=== PATIENT | male | born 1970 | race Caucasian/White ===

== ENCOUNTER 2022-10-16 17:59 | Emergency (ER) | payer BC, SELFPAY ==
[2022-10-16 17:59] VITALS: BP 151/92; PULSE 88; RESP 18; TEMP 36.8; O2SAT 94
--- NOTE | 2022-10-16 18:25 | ED.URI ---
HPI - URI/Sore Throat General Chief Complaint: Upper Respiratory Infection Stated Complaint: cough Source: patient Mode of arrival: ambulatory Limitations: no limitations History of Present Illness HPI Narrative: 52-year-old male with a history of CAD status post CABG 6 years ago, dyslipidemia, hypertension presents to the ER with a 3 day history of -- 1 episode of low-grade fever -- nonproductive cough no chest pain or shortness of breath patient's sister was diagnosed with COVID and he was exposed to her 6 days ago. MD elicited complaint: fever and cough Onset (ago): day(s) ( Three days) Consistency: intermittent Severity: mild Description of mucous: green Able to tolerate fluids by mouth: Yes Exacerbating factors: nothing Relieving factors: nothing Context: sick contacts Associated symptoms: fever Treatments prior to arrival: none Related Data Allergies Allergy/AdvReac Type Severity Reaction Status Date / Time No Known Allergies Allergy Verified 10/16/22 18:25 Review of Systems Review of Systems: All systems reviewed & are unremarkable except as noted in HPI and below Constitutional: Constitutional: Reports as per HPI, Reports no additional constitutional complaints and Reports fever(s) Eyes: Eyes: Reports as per HPI and Reports no additional eye complaints ENT: Reports system reviewed and no additional complaints, except as documented and Reports as per HPI Cardiovascular: Cardiovascular: Reports as per HPI and Reports no additional cardiovascular complaints Respiratory: Respiratory: Reports as per HPI, Reports no additional respiratory complaints and Reports cough Gastrointestinal: Gastrointestinal: Reports as per HPI and Reports no additional gastrointestinal complaints Genitourinary: Genitourinary: Reports no additional male genitourinary complaints and Reports as per HPI Musculoskeletal: Musculoskeletal: Reports no additional musculoskeletal complaints and Reports as per HPI Integumentary/Breasts: Skin/Breast: Reports system reviewed and no additional complaints, except as docu and Reports as per HPI Neurologic: Reports system reviewed and no additional complaints, except as documented and Reports as per HPI Psychiatric: Psychiatric: Reports no additional psychiatric complaints and Reports as per HPI Endocrine: Endocrine: Reports no additional endocrine complaints and Reports as per HPI Hematologic/Lymphatic: Hematologic/Lymphatic: Reports no additional hematologic/lymphatic complaints and Reports as per HPI Allergic/Immunologic: Allergic/Immunologic: Reports no additional allergic/immunologic complaints and Reports as per HPI [facility] Past Medical History Medical History (Updated 10/16/22 @ 19:50 by Walter Gardiner MD) CAD (coronary artery disease) Dyslipidemia Hypertension Surgical History Surgical History (Updated 10/16/22 @ 19:05 by Walter Gardiner MD) Hx of CABG Family History Family History (Updated 10/16/22 @ 19:05 by Walter Gardiner MD) Other Acute myocardial infarction Exam Narrative: afebrile. Oxygenation stable Const: General: no acute distress Nutritional Appearance: well nourished Orientation/consciousness: patient oriented x3 Limitations: no limitations HENMT: Head: normal to inspection Ears: external ears normal Face/Nose/Sinus: Normal external nose present Face and sinus: normal facial exam Mouth: Yes Normal oral and palatal mucosa present Throat: posterior oropharynx normal Eyes: Conjunctivae: conjunctivae normal Pupils: Equal, round and reactive pupils present EOM: EOMs intact bilaterally Direct Ophthalmoscopy: no photophobia Neck: Neck: normal visual inspection, no lymphadenopathy and no meningeal signs Chest: Chest palpation & inspection: normal inspection of the chest and abnormal inspection of the chest Resp: Effort & Inspection: normal respiratory effort Auscultation: clear to auscultation bilaterally Cardio: Rate: regular
[2022-10-16 18:54] LABS: Influenza A QL RT-PCR Negative (Negative); Influenza B QL RT-PCR Negative (Negative); RSV RNA, RT-PCR Negative (Negative); SARS-CoV-2 RNA PCR Negative (Negative)
--- NOTE | 2022-10-16 19:03 | PC.NURSE ---
patient report given to KATHY Mondragon. care assumed by Alanna at this time.
[2022-10-16 19:15] VITALS: BP 140/90; PULSE 78; RESP 20; O2SAT 100
[2022-10-16 19:52] VITALS: BP 132/80; PULSE 80; RESP 20; TEMP 36.6; O2SAT 98
== END 2022-10-16 20:05 | disposition home or self-care (01) ==
PROVIDERS: Emergency Provider Internal Medicine Critical Care Medicine; PCP Family Medicine
DX: J06.9 Acute upper respiratory infection, unspecified (principal); I25.810 Atherosclerosis of coronary artery bypass graft(s) without angina pectoris; E78.5 Hyperlipidemia, unspecified; I10 Essential (primary) hypertension; Z20.822 Contact with and (suspected) exposure to COVID-19
CPT/HCPCS: 87637; 99283

== ENCOUNTER 2023-09-16 12:02 | Emergency (ER) | payer BC, SELFPAY ==
--- NOTE | ~2023-09-16 | XR_ITS ---
EXAMINATION: XR chest 2V DATE: 09/16/2023 12:47 INDICATION: Shortness of breath. TECHNIQUE: Frontal and lateral views of the chest were obtained. COMPARISON: None. FINDINGS: There is no pneumonia, pleural effusion, or pneumothorax. The heart size is normal. Median sternotomy wires and mediastinal surgical clips are seen, likely from prior coronary artery bypass gr afting. IMPRESSION: 1. No acute cardiopulmonary disease. Reviewed, dictated and finalized at location A.
[2023-09-16 12:06] VITALS: BP 131/78; PULSE 65; RESP 20; TEMP 36.2; O2SAT 97
[2023-09-16 12:21] VITALS: BP 131/78; PULSE 65; RESP 20; TEMP 36.2; O2SAT 97
--- NOTE | 2023-09-16 12:23 | ED.URI ---
HPI - URI/Sore Throat General Chief Complaint: Upper Respiratory Infection Stated Complaint: burning lungs Time Seen by Provider: 09/16/23 12:04 Source: patient Mode of arrival: ambulatory Limitations: no limitations History of Present Illness HPI Narrative: Patient is a 53-year-old male with some chest/back burning sensation for the past 3 days. He has some associated shortness of breath. Coronary patient with 2 bypass. patient is diabetic. MD elicited complaint: cough Pertinent past history: other ( CAD) Onset (ago): day(s) (3) Consistency: intermittent Severity: mild Pain scale (0-10): 3 Description of mucous: clear Able to tolerate fluids by mouth: Yes Exacerbating factors: nothing Relieving factors: nothing Associated symptoms: denies other symptoms Treatments prior to arrival: none Related Data Home Medications Medication Instructions Recorded Confirmed metformin 500 mg tablet,extended 500 mg PO DAILY 09/16/23 09/16/23 release 24 hr tadalafil 20 mg tablet 20 mg PO DAILY 09/16/23 09/16/23 testosterone cypionate 200 mg/mL 200 mg IM 2XW 09/16/23 09/16/23 intramuscular oil Allergies Allergy/AdvReac Type Severity Reaction Status Date / Time No Known Allergies Allergy Verified 09/16/23 12:20 Review of Systems Review of Systems: All systems reviewed & are unremarkable except as noted in HPI and below Constitutional: Constitutional: Reports no additional constitutional complaints Eyes: Eyes: Reports no additional eye complaints ENT: Reports system reviewed and no additional complaints, except as documented Cardiovascular: Cardiovascular: Reports no additional cardiovascular complaints Respiratory: Respiratory: Reports no additional respiratory complaints Gastrointestinal: Gastrointestinal: Reports no additional gastrointestinal complaints Genitourinary: Genitourinary: Reports no additional male genitourinary complaints Musculoskeletal: Musculoskeletal: Reports no additional musculoskeletal complaints Integumentary/Breasts: Skin/Breast: Reports system reviewed and no additional complaints, except as docu Neurologic: Reports system reviewed and no additional complaints, except as documented Psychiatric: Psychiatric: Reports no additional psychiatric complaints Endocrine: Endocrine: Reports no additional endocrine complaints Hematologic/Lymphatic: Hematologic/Lymphatic: Reports no additional hematologic/lymphatic complaints Allergic/Immunologic: Allergic/Immunologic: Reports no additional allergic/immunologic complaints PMFSH Past Medical History Medical History CAD (coronary artery disease) Dyslipidemia Hypertension Surgical History Surgical History Hx of CABG Family History Family History Other Acute myocardial infarction Exam Const: General: healthy appearing Nutritional Appearance: well nourished Orientation/consciousness: patient oriented x3 HENMT: Head: normal to inspection Ears: external ears normal Face/Nose/Sinus: Normal external nose present Eyes: Conjunctivae: conjunctivae normal Pupils: Equal, round and reactive pupils present EOM: EOMs intact bilaterally Neck: Neck: normal visual inspection Chest: Chest palpation & inspection: normal inspection of the chest Resp: Effort & Inspection: normal respiratory effort and not labored Auscultation: clear to auscultation bilaterally and rhonchi throughout Cardio: Rate: regular rate Rhythm: regular rhythm Heart sounds: no murmurs GI: Inspection: non-distended GI Palp: Yes Soft to palpation and No Tenderness to palpation present (GI) Auscultation: normal bowel sounds : General: Yes bladder normal to palpation Back/Spine/Pelvis: Back: no CVA tenderness Skin: General skin exam: normal color Rashes: no rashes Wounds: no wounds Neuro: G
--- NOTE | 2023-09-16 12:27 | ECG_ITS ---
Test Date: 2023-09-16 12:54:43 Measurements Intervals [place] Rate: 62 P: 70 NH: 176 QRS: 102 QRSD: 142 T: 11 QT: 443 QTc: 451 Interpretive Statements SINUS RHYTHM WITH SINUS ARRHYTHMIA RIGHT BUNDLE BRANCH BLOCK CONSIDER INFERIOR INFARCT, AGE INDETERMINATE ABNORMAL ECG No previous ECG available for comparison Electronically Signed On 09-16-2023 13:01:27 CDT by Sterling Mcnamara D.O.
[2023-09-16 12:52] LABS: Basophils Absolute Auto 0.04 K/mm3 (0.00-0.10); Basophils Percent Auto 0.5 % (0.0-1.0); Eosinophils Absolute Auto 0.15 K/mm3 (0.02-0.50); Hematocrit 44.2 % (40.0-54.0); Hemoglobin 15.4 g/dL (14.0-18.0); Immature Granulocyte Absolute 0.05 K/mm3 (0.00-0.00); Immature Granulocyte Percent A 0.7 % (0.0-0.0); Lymphocytes Absolute Auto 1.14 K/mm3 (1.10-4.50); Lymphocytes Percent Auto 15.1 % (18.0-42.0); Mean Corpuscular HGB Conc 34.8 g/dL (32-36); Mean Corpuscular Hemoglobin 31.3 pg (27.0-31.0); Mean Corpuscular Volume 89.8 fL (78.0-102.0); Mean Platelet Volume 9.1 fl (8.7-11.0); Monocytes Percent Auto 7.9 % (2.0-11.0); Neutrophils Absolute Auto 5.58 K/mm3 (1.70-7.20); Neutrophils Percent Auto 73.8 % (50.0-70.0); Platelet Count Result 241 K/mm3 (150-420); Red Blood Count 4.92 M/mm3 (4.70-6.10); Red Cell Distribution Width 12.2 % (11.6-14.4); White Blood Count 7.6 K/mm3 (4.8-10.8)
[2023-09-16 13:06] LABS: D Dimer 0.31 mg/L (0.19-0.50)
--- NOTE | 2023-09-16 13:06 | PC.NURSE ---
Pt resting comfortably. Waiting on test results. Gave pt a warm blanket.
[2023-09-16 13:14] LABS: Alanine Aminotransferase 19 U/L (16-63); Albumin Level 3.7 g/dL (3.4-5.0); Alkaline Phosphatase 64 U/L (46-116); Anion Gap 7 mmol/L (4-12); Aspartate Amino Transferase 14 U/L (15-37); Bilirubin,Total 0.4 mg/dL (0.00-1.00); Blood Urea Nitrogen 7 mg/dL (7-18); Calcium 8.7 mg/dL (8.5-10.1); Carbon Dioxide 31 mmol/L (21-32); Chloride 102 mmol/L (98-108); Estimated CRCL calculation 118 ml/min; Estimated Glomerular Filt Rate > 60; Glucose 104 mg/dL (70-99); NT Pro B Type Natriuretic Pept 186 pg/mL (0-125); Osmolality Calculated 288 mOsm/kg (285-295); Potassium 3.6 mmol/L (3.5-5.1); Sodium 140 mmol/L (136-145); Total Protein 6.7 g/dL (6.4-8.2); Troponin I 6.1 ng/L (0.00-60.4)
[2023-09-16 13:27] LABS: SARS-CoV-2 RNA PCR Negative (Negative)
[2023-09-16 13:28] LABS: Influenza A QL RT-PCR Negative (Negative); Influenza B QL RT-PCR Negative (Negative); RSV RNA, RT-PCR Negative (Negative)
[2023-09-16 13:47] VITALS: BP 134/69; PULSE 55; O2SAT 98
== END 2023-09-16 13:47 | disposition home or self-care (01) ==
PROVIDERS: Emergency Provider Emergency Medicine
DX: J40 Bronchitis, not specified as acute or chronic (principal); E11.9 Type 2 diabetes mellitus without complications; I10 Essential (primary) hypertension; I25.10 Atherosclerotic heart disease of native coronary artery without angina pectoris; Z79.84 Long term (current) use of oral hypoglycemic drugs; Z20.822 Contact with and (suspected) exposure to COVID-19
CPT/HCPCS: 36415; 71046; 80053; 83880; 84484; 85025; 85380; 87637; 93005; 99284